=== PATIENT | male | born 1960 | race Caucasian/White ===

== ENCOUNTER 2018-11-06 14:23 | Inpatient (IN) | payer MEDICARE, OTHER ==
[~2018-11-06] VITALS: Ht 190.5 cm; Wt 104.3 kg
--- NOTE | 2018-11-06 14:56 | PHYS DOC ---
Adult General Chief Complaint Chief Complaint: CHEST PAIN HPI HPI Patient is a 58 year old male presents to the ED complaining of episodes of chest pain 4 days ago. Patient states he started to have intermittent chest pain to left chest starting last . Patient states the pain will wake him up out of his sleep. Complains of pain to left side of his chest. Describes the pain as sharp. Rates the pain as 10 out of 10 when it occurs. Patient states he's had more than 10 episodes each day. Pain is not worse or better with exertion. Patient has a family history of cardiac issues but states he has never been diagnosed with anything himself. States his dad of a massive heart attack. Denies shortness of breath, nausea/vomiting, dizziness, weakness, neck pain, fever, jaw pain, (OMID MILAN) Review of Systems Review of Systems Constitutional: Denies fever or chills [] Eyes: Denies change in visual acuity, redness, or eye pain [] HENT: Denies nasal congestion or sore throat [] Respiratory: Denies cough or shortness of breath [] Cardiovascular: No additional information not addressed in HPI [] GI: Denies abdominal pain, nausea, vomiting, bloody stools or diarrhea [] : Denies dysuria or hematuria [] Musculoskeletal: Denies back pain or joint pain [] Integument: Denies rash or skin lesions [] Neurologic: Denies headache, focal weakness or sensory changes [] All other systems were reviewed and found to be within normal limits, except as documented in this note. (OMID MILAN) Allergies Allergies Allergies Coded Allergies Type Severity Reaction Last Updated Verified No Known Drug Allergies 11/06/18 No (LIBERTAD CANTRELL MD) Physical Exam Physical Exam Constitutional: Well developed, well nourished, no acute distress, non-toxic appearance. [] HENT: Normocephalic, atraumatic Eyes: PERRLA, EOMI, conjunctiva normal, no discharge. [] Neck: Normal range of motion, no tenderness, supple, no stridor. [] Cardiovascular:Heart rate regular rhythm, no murmur [] Lungs & Thorax: Bilateral breath sounds clear to auscultation [] Abdomen: Bowel sounds normal, soft, no tenderness, no masses, no pulsatile masses. [] Skin: Warm, dry, no erythema, no rash. [] Back: No tenderness, no CVA tenderness. [] Extremities: No tenderness, no cyanosis, no clubbing, ROM intact, no edema. [] Neurologic: Alert and oriented X 3, normal motor function, normal sensory function, no focal deficits noted. [] Psychologic: Affect normal, judgement normal, mood normal. [] (OMID MILAN) Current Patient Data Vital Signs Vital Signs Date Time Temp Pulse Resp B/P (MAP) Pulse Ox O2 Delivery O2 Flow Rate FiO2 11/06/18 14:46 98.1 78 16 130/81 (97) 98 Room Air 98.1 (LIBERTAD CANTRELL MD) Lab Values Laboratory Tests Test 11/06/18 14:52 White Blood Count 7.8 x10^3/uL (4.0-11.0) Red Blood Count 4.72 x10^6/uL (4.30-5.70) Hemoglobin 13.6 g/dL (13.0-17.5) Hematocrit 40.8 % (39.0-53.0) Mean Corpuscular Volume 86 fL (79-100) Mean Corpuscular Hemoglobin 29 pg (25-35) Mean Corpuscular Hemoglobin Concent 34 g/dL (31-37) Red Cell Distribution Width 13.6 % (11.5-14.5) Platelet Count 209 x10^3/uL (140-400) Neutrophils (%) (Auto) 58 % (31-73) Lymphocytes (%) (Auto) 20 % (24-48) L Monocytes (%) (Auto) 8 % (0-9) Eosinophils (%) (Auto) 13 % (0-3) H Basophils (%) (Auto) 1 % (0-3) Neutrophils # (Auto) 4.5 x10^3uL (1.8-7.7) Lymphocytes # (Auto) 1.5 x10^3/uL (1.0-4.8) Monocytes # (Auto) 0.7 x10^3/uL (0.0-1.1) Eosinophils # (Auto) 1.0 x10^3/uL (0.0-0.7) H Basophils # (Auto) 0.1 x10^3/uL (0.0-0.2) D-Dimer (Marilyn) < 0.27 ug/mlFEU Sodium Level 140 mmol/L (136-145) Potassium Level 3.6 mmol/L (3.5-5.1) Chloride Level 103 mmol/L (98-107) Carbon Dioxide Level 28 mmol/L (21-32) Anion Gap 9 (6-14) Blood Urea Nitrogen 20 mg/dL (8-26) Creatinine 0.8 mg/dL (0.7-1.3) Estimated GFR (Cockcroft-Gault) 100.0 BUN/Creatinine Ratio 25 (6-20) H Glucose Level 119 mg/dL (70-99) H Calcium Level 8.5 mg/dL (8.5-10.1) Total Bilirubin 0.7 mg/dL (0.2-1.0) Aspartate Amino Transferase (AST) 31 U/L (15-37) Alanine Aminotransferase (ALT) 66 U/L (16-63) H Alkaline Phosphatase 89 U/L (46-116) Troponin I Quantitative < 0.017 ng/mL (0.000-0.055) Total Protein 6.9 g/dL (6.4-8.2) Albumin 3.5 g/dL (3.4-5.0) Albumin/Globulin Ratio 1.0 (1.0-1.7) Lipase 79 U/L (73-393) Laboratory Tests 11/06/18 14:52 Laboratory Tests 11/06/18 14:52 (LIBERTAD CANTRELL MD) Lab Values Laboratory Tests Test 11/06/18 14:52 White Blood Count 7.8 x10^3/uL (4.0-11.0) Red Blood Count 4.72 x10^6/uL (4.30-5.70) Hemoglobin 13.6 g/dL (13.0-17.5) Hematocrit 40.8 % (39.0-53.0) Mean Corpuscular Volume 86 fL (79-100) Mean Corpuscular Hemoglobin 29 pg (25-35) Mean Corpuscular Hemoglobin Concent 34 g/dL (31-37) Red Cell Distribution Width 13.6 % (11.5-14.5) Platelet Count 209 x10^3/uL (140-400) Neutrophils (%) (Auto) 58 % (31-73) Lymphocytes (%) (Auto) 20 % (24-48) L Monocytes (%) (Auto) 8 % (0-9) Eosinophils (%) (Auto) 13 % (0-3) H Basophils (%) (Auto) 1 % (0-3) Neutrophils # (Auto) 4.5 x10^3uL (1.8-7.7) Lymphocytes # (Auto) 1.5 x10^3/uL (1.0-4.8) Monocytes # (Auto) 0.7 x10^3/uL (0.0-1.1) Eosinophils # (Auto) 1.0 x10^3/uL (0.0-0.7) H Basophils # (Auto) 0.1 x10^3/uL (0.0-0.2) D-Dimer (Marilyn) < 0.27 ug/mlFEU Sodium Level 140 mmol/L (136-145) Potassium Level 3.6 mmol/L (3.5-5.1) Chloride Level 103 mmol/L (98-107) Carbon Dioxide Level 28 mmol/L (21-32) Anion Gap 9 (6-14) Blood Urea Nitrogen 20 mg/dL (8-26) Creatinine 0.8 mg/dL (0.7-1.3) Estimated GFR (Cockcroft-Gault) 100.0 BUN/Creatinine Ratio 25 (6-20) H Glucose Level 119 mg/dL (70-99) H Calcium Level 8.5 mg/dL (8.5-10.1) Total Bilirubin 0.7 mg/dL (0.2-1.0) Aspartate Amino Transferase (AST) 31 U/L (15-37) Alanine Aminotransferase (ALT) 66 U/L (16-63) H Alkaline Phosphatase 89 U/L (46-116) Troponin I Quantitative < 0.017 ng/mL (0.000-0.055) Total Protein 6.9 g/dL (6.4-8.2) Albumin 3.5 g/dL (3.4-5.0) Albumin/Globulin Ratio 1.0 (1.0-1.7) Lipase 79 U/L (73-393) Laboratory Tests 11/06/18 14:52 Laboratory Tests 11/06/18 14:52 (OMID MILAN) EKG EKG EKG shows Sinus rhythm with PVC's at 72 bpm. No STEMI. (OMID MILAN) Radiology/Procedures Radiology/Procedures [] (OMID MILAN) Course & Med Decision Making Course & Med Decision Making Pertinent Labs and Imaging studies reviewed. (See chart for details) Negative 1st troponin and negative dimer. Patient resting comfortably at this time. []Discussed lab and imaging findings with hospitalist, Dr. Matthews. Agrees to admission and further management patient. Patient stable for admission. Request cardiology consult. Discussed case with Dr. Tompkins. States he will consult and see patient. No further orders at this time. (OMID MILAN) Course & Med Decision Making I was not involved in the care of this patient after 1600.Dr Cantrell (LIBERTAD CANTRELL MD) Dragon Disclaimer Dragon Disclaimer This electronic medical record was generated, in whole or in part, using a voice recognition dictation system. (OMID MILAN) Departure Departure Impression: Primary Impression: Chest pain Disposition: ADMITTED INPATIENT Admitting Physician: Santi Cannon (OMID MILAN) Condition: STABLE OMID MILAN Nov 06, 2018 14:56 LIBERTAD CANTRELL MD Nov 10, 2018 06:45
[2018-11-06 14:59] LABS: BASO # 0.1 x10^3/uL (0.0-0.2); BASO % 1 % (0-3); EOS % 13 % (0-3); HEMATOCRIT 40.8 % (39.0-53.0); HEMOGLOBIN 13.6 g/dL (13.0-17.5); LYMPH # 1.5 x10^3/uL (1.0-4.8); LYMPH % 20 % (24-48); MEAN CORPUSCULAR HEMOGLOBIN 29 pg (25-35); MEAN CORPUSCULAR HGB CONC 34 g/dL (31-37); MEAN CORPUSCULAR VOLUME 86 fL (79-100); MONO # 0.7 x10^3/uL (0.0-1.1); MONO % 8 % (0-9); NEUT # 4.5 x10^3uL (1.8-7.7); NEUT % 58 % (31-73); PLATELET COUNT 209 x10^3/uL (140-400); RED BLOOD COUNT 4.72 x10^6/uL (4.30-5.70); RED CELL DISTRIBUTION WIDTH 13.6 % (11.5-14.5); WHITE BLOOD COUNT 7.8 x10^3/uL (4.0-11.0)
[2018-11-06 15:07] LABS: CALCIUM 8.5 mg/dL (8.5-10.1); CREATININE 0.8 mg/dL (0.7-1.3); POTASSIUM 3.6 mmol/L (3.5-5.1)
[2018-11-06 15:12] LABS: ALBUMIN 3.5 g/dL (3.4-5.0); TOTAL BILIRUBIN 0.7 mg/dL (0.2-1.0); TOTAL PROTEIN 6.9 g/dL (6.4-8.2)
--- NOTE | 2018-11-06 15:18 | EKG ---
[facility] [address] [place] [address] Test Date: 2018-11-06 Test Time: 14:36:41 Pat Name: RUBIO CRANDALL Department: Room: Gender: M [employer]: : [id number] Requested By: OMID MILAN Order Number: [id number] Reading MD: Maik Smith Measurements Intervals Dwight Rate: 72 P: 133 MT: 152 QRS: 154 QRSD: 76 T: 155 QT: 402 QTc: 442 Interpretive Statements SINUS RHYTHM VENTRICULAR PREMATURE COMPLEX(ES) ABNORMAL RIGHT AXIS DEVIATION QRS(T) CONTOUR ABNORMALITY CONSISTENT WITH HIGH LATERAL INFARCT AGE UNDETERMINED Electronically Signed On 11-12-2018 13:06:53 CDT by Maik Smith
--- NOTE | 2018-11-06 15:28 | RAD ---
EXAM: Chest, single view. HISTORY: Chest pain. COMPARISON: None. FINDINGS: A frontal view of the chest is obtained. There is no infiltrate, pleural effusion or pneumothorax. The heart is normal in size. IMPRESSION: No acute pulmonary finding. Electronically signed by: Elmira Segal MD (11/06/2018 3:25 PM) [place] [id number]
[2018-11-06 16:14] LABS: BILIRUBIN,URINE NEGATIVE (NEG); CLARITY,URINE CLOUDY; COLOR,URINE YELLOW; NITRITE,URINE NEGATIVE (NEG); PROTEIN,URINE NEGATIVE (NEG-TRACE); UROBILINOGEN,URINE 0.2 mg/dL (0.2 mg/dL)
[2018-11-06 16:27] LABS: BACTERIA,URINE 0 /HPF (0-FEW); RBC,URINE 0 /HPF (0-2); WBC,URINE OCC /HPF (0-4)
[2018-11-06 16:28] LABS: SQUAMOUS EPITHELIAL CELL,UR OCC /LPF
[2018-11-06] MEDS ORDERED: fentaNYL PF VIAL 100 MCG/2 ML VIAL IV PRN (16:45)
[2018-11-06] MEDS ORDERED: ONDANSETRON PF 4 MG/2 ML VIAL. IV PRN (16:45)
--- NOTE | 2018-11-06 16:57 | PDOC1 ---
History and Physical Date of Admission Date of Admission DATE: 11/06/18 TIME: 16:57 Identification/Chief Complaint Chief Complaint SEEN IN ER ,presents to the ED complaining of episodes of chest pain 4 days ago. Patient states he started to have intermittent chest pain to left chest starting last . Patient states the pain will wake him up out of his sleep. Complains of pain to left side of his chest. Describes the pain as sharp. Rates the pain as 10 out of 10 when it occurs. Patient states he's had more than 10 episodes each day. Pain is not worse or better with exertion. Patient has a family history of cardiac issues but states he has never been diagnosed with anything himself. his dad of a massive heart attack. Denies shortness of breath, nausea/vomiting, dizziness, weakness, neck pain, fever, jaw pain, Past Medical History Cardiovascular: HTN, Hyperlipidemia Musculoskeletal: Osteoarthritis Family History Family History: Heart Disease, High Cholestrol Social History Smoke: Quit ALCOHOL: none Drugs: None Current Medications Current Medications Current Medications Ondansetron HCl (Zofran) 4 mg PRN Q8HRS PRN IV NAUSEA/VOMITING; Start 11/06/18 at 16:45; Stop 11/07/18 at 16:44 Fentanyl Citrate (Fentanyl 2ml Vial) 50 mcg PRN Q1HR PRN IV PAIN; Start at 16:45; Stop 11/07/18 at 16:44 Allergies Allergies: Coded Allergies: No Known Drug Allergies (Unverified , 11/06/18) ROS Review of System Review of Systems Review of Systems Constitutional: Denies fever or chills [] Eyes: Denies change in visual acuity, redness, or eye pain [] HENT: Denies nasal congestion or sore throat [] Respiratory: Denies cough or shortness of breath [] Cardiovascular: No additional information not addressed in HPI [] GI: Denies abdominal pain, nausea, vomiting, bloody stools or diarrhea [] : Denies dysuria or hematuria [] Musculoskeletal: Denies back pain or joint pain [] Integument: Denies rash or skin lesions [] Neurologic: Denies headache, focal weakness or sensory changes [] 14 PT systems were reviewed and found to be within normal limits, except as documented . Physical Exam Physical Exam Physical Exam Physical Exam Constitutional: Well developed, well nourished, no acute distress, non-toxic appearance. [] HENT: Normocephalic, atraumatic Eyes: PERRLA, EOMI, conjunctiva normal, no discharge. [] Neck: Normal range of motion, no tenderness, supple, no stridor. [] Cardiovascular:Heart rate regular rhythm, no murmur [] Lungs & Thorax: Bilateral breath sounds clear to auscultation [] Abdomen: Bowel sounds normal, soft, no tenderness, no masses, no pulsatile masses. [] Skin: Warm, dry, no erythema, no rash. [] Back: No tenderness, no CVA tenderness. [] Extremities: No tenderness, no cyanosis, no clubbing, ROM intact, no edema. [] Neurologic: Alert and oriented X 3, normal motor function, normal sensory function, no focal deficits noted. [] Psychologic: Affect normal, judgement normal, mood normal. [] General: Alert, Oriented X3, Cooperative, mild distress HEENT: Atraumatic, PERRLA, EOMI, Mucous membr. moist/pink Lungs: Clear to auscultation, Normal air movement Heart: S1S2, RRR, no rubs, no gallops Breasts: Not examined Abdomen: Normal bowel sounds, Soft Extremities: No clubbing, No cyanosis, No edema Skin: No breakdown, No significant lesion Neuro: Normal speech, Cranial nerves 3-12 NL Psych/Mental Status: Mental status NL, Mood NL Vitals Vitals Vital Signs Date Time Temp Pulse Resp B/P (MAP) Pulse Ox O2 Delivery O2 Flow Rate FiO2 11/06/18 14:46 98.1 78 16 130/81 (97) 98 Room Air 98.1 Labs Labs Laboratory Tests Test 11/06/18 14:52 11/06/18 16:08 White Blood Count 7.8 x10^3/uL (4.0-11.0) Red Blood Count 4.72 x10^6/uL (4.30-5.70) Hemoglobin 13.6 g/dL (13.0-17.5) Hematocrit 40.8 % (39.0-53.0) Mean Corpuscular Volume 86 fL (79-100) Mean Corpuscular Hemoglobin 29 pg (25-35) Mean Corpuscular Hemoglobin Concent 34 g/dL (31-37) Red Cell Distribution Width 13.6 % (11.5-14.5) Platelet Count 209 x10^3/uL (140-400) Neutrophils (%) (Auto) 58 % (31-73) Lymphocytes (%) (Auto) 20 % (24-48) Monocytes (%) (Auto) 8 % (0-9) Eosinophils (%) (Auto) 13 % (0-3) Basophils (%) (Auto) 1 % (0-3) Neutrophils # (Auto) 4.5 x10^3uL (1.8-7.7) Lymphocytes # (Auto) 1.5 x10^3/uL (1.0-4.8) Monocytes # (Auto) 0.7 x10^3/uL (0.0-1.1) Eosinophils # (Auto) 1.0 x10^3/uL (0.0-0.7) Basophils # (Auto) 0.1 x10^3/uL (0.0-0.2) D-Dimer (Marilyn) < 0.27 ug/mlFEU Sodium Level 140 mmol/L (136-145) Potassium Level 3.6 mmol/L (3.5-5.1) Chloride Level 103 mmol/L (98-107) Carbon Dioxide Level 28 mmol/L (21-32) Anion Gap 9 (6-14) Blood Urea Nitrogen 20 mg/dL (8-26) Creatinine 0.8 mg/dL (0.7-1.3) Estimated GFR (Cockcroft-Gault) 100.0 BUN/Creatinine Ratio 25 (6-20) Glucose Level 119 mg/dL (70-99) Calcium Level 8.5 mg/dL (8.5-10.1) Total Bilirubin 0.7 mg/dL (0.2-1.0) Aspartate Amino Transf (AST/SGOT) 31 U/L (15-37) Alanine Aminotransferase (ALT/SGPT) 66 U/L (16-63) Alkaline Phosphatase 89 U/L (46-116) Troponin I Quantitative < 0.017 ng/mL (0.000-0.055) Total Protein 6.9 g/dL (6.4-8.2) Albumin 3.5 g/dL (3.4-5.0) Albumin/Globulin Ratio 1.0 (1.0-1.7) Lipase 79 U/L (73-393) Urine Color Yellow Urine Clarity Cloudy Urine pH 7.0 Urine Specific [place] 1.020 Urine Protein Negative mg/dL (NEG-TRACE) Urine Glucose (UA) Negative mg/dL (NEG) Urine Ketones (Stick) Negative mg/dL (NEG) Urine Blood Negative (NEG) Urine Nitrite Negative (NEG) Urine Bilirubin Negative (NEG) Urine Urobilinogen Dipstick 0.2 mg/dL (0.2 mg/dL) Urine Leukocyte Esterase Negative (NEG) Urine RBC 0 /HPF (0-2) Urine WBC Occ /HPF (0-4) Urine Squamous Epithelial Cells Occ /LPF Urine Bacteria 0 /HPF (0-FEW) Urine Mucus Slight /LPF Laboratory Tests Test 11/06/18 14:52 11/06/18 16:08 White Blood Count 7.8 x10^3/uL (4.0-11.0) Red Blood Count 4.72 x10^6/uL (4.30-5.70) Hemoglobin 13.6 g/dL (13.0-17.5) Hematocrit 40.8 % (39.0-53.0) Mean Corpuscular Volume 86 fL (79-100) Mean Corpuscular Hemoglobin 29 pg (25-35) Mean Corpuscular Hemoglobin Concent 34 g/dL (31-37) Red Cell Distribution Width 13.6 % (11.5-14.5) Platelet Count 209 x10^3/uL (140-400) Neutrophils (%) (Auto) 58 % (31-73) Lymphocytes (%) (Auto) 20 % (24-48) Monocytes (%) (Auto) 8 % (0-9) Eosinophils (%) (Auto) 13 % (0-3) Basophils (%) (Auto) 1 % (0-3) Neutrophils # (Auto) 4.5 x10^3uL (1.8-7.7) Lymphocytes # (Auto) 1.5 x10^3/uL (1.0-4.8) Monocytes # (Auto) 0.7 x10^3/uL (0.0-1.1) Eosinophils # (Auto) 1.0 x10^3/uL (0.0-0.7) Basophils # (Auto) 0.1 x10^3/uL (0.0-0.2) D-Dimer (Marilyn) < 0.27 ug/mlFEU Sodium Level 140 mmol/L (136-145) Potassium Level 3.6 mmol/L (3.5-5.1) Chloride Level 103 mmol/L (98-107) Carbon Dioxide Level 28 mmol/L (21-32) Anion Gap 9 (6-14) Blood Urea Nitrogen 20 mg/dL (8-26) Creatinine 0.8 mg/dL (0.7-1.3) Estimated GFR (Cockcroft-Gault) 100.0 BUN/Creatinine Ratio 25 (6-20) Glucose Level 119 mg/dL (70-99) Calcium Level 8.5 mg/dL (8.5-10.1) Total Bilirubin 0.7 mg/dL (0.2-1.0) Aspartate Amino Transf (AST/SGOT) 31 U/L (15-37) Alanine Aminotransferase (ALT/SGPT) 66 U/L (16-63) Alkaline Phosphatase 89 U/L (46-116) Troponin I Quantitative < 0.017 ng/mL (0.000-0.055) Total Protein 6.9 g/dL (6.4-8.2) Albumin 3.5 g/dL (3.4-5.0) Albumin/Globulin Ratio 1.0 (1.0-1.7) Lipase 79 U/L (73-393) Urine Color Yellow Urine Clarity Cloudy Urine pH 7.0 Urine Specific [place] 1.020 Urine Protein Negative mg/dL (NEG-TRACE) Urine Glucose (UA) Negative mg/dL (NEG) Urine Ketones (Stick) Negative mg/dL (NEG) Urine Blood Negative (NEG) Urine Nitrite Negative (NEG) Urine Bilirubin Negative (NEG) Urine Urobilinogen Dipstick 0.2 mg/dL (0.2 mg/dL) Urine Leukocyte Esterase Negative (NEG) Urine RBC 0 /HPF (0-2) Urine WBC Occ /HPF (0-4) Urine Squamous Epithelial Cells Occ /LPF Urine Bacteria 0 /HPF (0-FEW) Urine Mucus Slight /LPF Images Images EXAM: Chest, single view. HISTORY: Chest pain. COMPARISON: None. FINDINGS: A frontal view of the chest is obtained. There is no infiltrate, pleural effusion or pneumothorax. The heart is normal in size. IMPRESSION: No acute pulmonary finding. Electronically signed by: lEmira Segal MD (11/06/2018 3:25 PM) [facility] VTE Prophylaxis Ordered VTE Prophylaxis Devices: Yes VTE Pharmacological Prophylaxi: Yes Assessment/Plan Assessment/Plan Impression: Chest pain HYPERLIPIDEMIA POS FHX ASHD PRE-DIABETIC, METABOLIC syndrome HYPERTENSION PLAN TELE SERIAL TROPONIN I STRESS TEST echo cardiology consult DVT PROPHYLAXIS FLP mod risk factors for ASHD/ CAD ADMITTED KAREN URIBE MD Nov 06, 2018 16:57
[2018-11-06 19:00] VITALS: BP 103/62
--- NOTE | 2018-11-06 19:00 | NUR ---
Pt was admitted to the unit from ER with c/o chest pain for the past 5 days. Pt states that the pain progressively gets worse at night while his sleeping until it wakes him up. Pt currently has no c/o pain, SR with PVC's on telemetry, RA, up adlib and tolerating well. H&P, med rec completed, spoke with admitting physician, Dr. Matthews, home meds restarted and orders received. Bed in low/locked position, call light within reach, VSS, will continue to monitor for status changes.
[2018-11-06] MEDS ORDERED: BACL20TA PO (20:24)
[2018-11-06] MEDS ORDERED: BUSP10TA PO (20:24)
[2018-11-06] MEDS ORDERED: PROP20TA PO (20:24)
[2018-11-06] MEDS ORDERED: ATOR40TA59 PO (20:24)
[2018-11-06] MEDS ORDERED: METF500T16 PO (20:24)
[2018-11-06] MEDS ORDERED: QUET50TA5 PO (20:24)
[2018-11-06] MEDS ORDERED: IPRA30SP NS (20:24)
[2018-11-06] MEDS ORDERED: LISI10TA2 PO (20:24)
[2018-11-06] MEDS ORDERED: TRAZ-118 PO (20:24)
[2018-11-06] MEDS ORDERED: FLUO40CA9 PO (20:24)
[2018-11-06] MEDS ORDERED: CHOL100014 PO (20:24)
[2018-11-06] MEDS ORDERED: ASPI-630 PO (20:24)
[2018-11-06] MEDS ORDERED: HYDR50CA2 PO (20:24)
[2018-11-06] MEDS ORDERED: hydrOXYzine PAMOATE 25 MG CAPSULE PO PRN (20:45)
[2018-11-06] MEDS ORDERED: DEXTROSE 50% 25 GM / 50ML DISP.SYRIN. IV PRN (20:45)
[2018-11-06] MEDS ORDERED: LISINOPRIL 10 MG TABLET PO PRN (20:45)
[2018-11-06] MEDS ORDERED: traZODone 50 MG TABLET. PO PRN (20:45)
[2018-11-06] MEDS: INSULIN LISPRO 300 UNITS/3 ML INSULN.PEN. SQ SCH (21:00)
[2018-11-06] MEDS ORDERED: ATORVASTATIN CALCIUM 40 MG TABLET. PO SCH (21:00)
[2018-11-06] MEDS ORDERED: BACLOFEN 10 MG TABLET. PO PRN (21:00)
[2018-11-06] MEDS: IPRATROPIUM BROMIDE 0.06% NASAL SPRAY 15ML BOTTLE. NS SCH (21:00)
[2018-11-06] MEDS: PROPRANOLOL 10 MG TABLET. PO SCH (21:18)
[2018-11-06] MEDS: QUEtiapine 25 MG TABLET. PO SCH (21:18)
[2018-11-06] MEDS: busPIRone 10 MG TABLET. PO SCH (21:18)
[2018-11-06] MEDS ORDERED: ENOXAPARIN 40 MG/0.4 ML SYRINGE. SQ SCH (22:00)
[2018-11-06 23:15] VITALS: BP 96/55
[2018-11-06 23:30] VITALS: BP 173/84
[2018-11-07 03:44] VITALS: BP 104/50
[2018-11-07 04:45] LABS: BASO % 1 % (0-3); EOS # 1.1 x10^3/uL (0.0-0.7); EOS % 13 % (0-3); HEMATOCRIT 41.4 % (39.0-53.0); HEMOGLOBIN 13.6 g/dL (13.0-17.5); LYMPH % 25 % (24-48); MEAN CORPUSCULAR HEMOGLOBIN 29 pg (25-35); MEAN CORPUSCULAR HGB CONC 33 g/dL (31-37); MEAN CORPUSCULAR VOLUME 87 fL (79-100); MONO # 0.7 x10^3/uL (0.0-1.1); MONO % 8 % (0-9); NEUT # 4.2 x10^3uL (1.8-7.7); NEUT % 53 % (31-73); PLATELET COUNT 204 x10^3/uL (140-400); RED BLOOD COUNT 4.74 x10^6/uL (4.30-5.70); RED CELL DISTRIBUTION WIDTH 13.4 % (11.5-14.5); WHITE BLOOD COUNT 7.9 x10^3/uL (4.0-11.0)
[2018-11-07 06:39] LABS: ALBUMIN 3.4 g/dL (3.4-5.0); ALBUMIN/GLOBULIN RATIO 1.1 (1.0-1.7); CALCIUM 8.4 mg/dL (8.5-10.1); CREATININE 0.8 mg/dL (0.7-1.3); POTASSIUM 3.4 mmol/L (3.5-5.1); TOTAL BILIRUBIN 0.5 mg/dL (0.2-1.0); TOTAL PROTEIN 6.6 g/dL (6.4-8.2)
[2018-11-07 06:40] LABS: CHOLESTEROL/HDL RATIO 2.7
[2018-11-07 07:00] VITALS: BP 122/60
[2018-11-07] MEDS: INSULIN LISPRO 300 UNITS/3 ML INSULN.PEN. SQ SCH ×3 (08:00→17:00)
[2018-11-07] MEDS ORDERED: FLUoxetine HCL 20 MG CAPSULE PO SCH (09:00)
[2018-11-07] MEDS: IPRATROPIUM BROMIDE 0.06% NASAL SPRAY 15ML BOTTLE. NS SCH (09:00)
[2018-11-07] MEDS ORDERED: CHOLECALCIFEROL (VITAMIN D3) 1,000 UNIT TABLET PO SCH (09:00)
[2018-11-07] MEDS ORDERED: ASPIRIN CHEWABLE 81 MG TABLET. PO SCH (09:00)
--- NOTE | 2018-11-07 09:36 | CARD ---
MR#: [id number] Date of Study: 11/07/2018 Ordering Physician: KAREN URIBE, Referring Physician: KAREN URIBE Tech: Alice Tineo [facility] APPROVED REPORT EXAM: Two-dimensional and M-mode echocardiogram with Doppler and color Doppler. Other Information Quality : AverageHR: 65bpm Rhythm : PVC's INDICATION Chest Pain 2D DIMENSIONS RVDd3.7 (2.9-3.5cm)Left Atrium(2D)3.6 (1.6-4.0cm) IVSd1.0 (0.7-1.1cm)Aortic Root(2D)3.4 (2.0-3.7cm) LVDd4.6 (3.9-5.9cm)LVOT Diameter2.2 (1.8-2.4cm) PWd0.8 (0.7-1.1cm)LVDs3.2 (2.5-4.0cm) FS (%) 29.4 %SV55.0 ml LVEF(%)56.4 (>50%) Aortic Valve AoV Peak Turner.102.5cm/sAoV VTI24.1cm AO Peak GR.4.2mmHgLVOT Peak Turner.82.6cm/s AO Mean GR.2mmHgAVA (VMAX)2.96cm2 REG (VTI)3.00cm2 Mitral Valve MV E Thbiospi88.2cm/sMV DECEL [id number] MV A Ojjkaqvt17.1cm/sE/A Ratio1.1 MV A Dggbmfzd42mt Pulmonary Valve PV Peak Viifqsco195.6cm/s Tricuspid Valve TR P. Sljrejbw692sq/sRAP [id number] TR Peak Gr.45ovOxAHZO24hoQt LEFT VENTRICLE The left ventricle is normal size. There is normal left ventricular wall thickness. The left ventricu lar systolic function is normal and the ejection fraction is within normal range. The Ejection Fracti on is 55-60%. There is normal LV segmental wall motion. Transmitral Doppler flow pattern is Grade II- pseudonormal filling dynamics. RIGHT VENTRICLE The right ventricle is normal size. There is normal right ventricular wall thickness. The right ventr icular systolic function is normal. ATRIA The left atrium size is normal. The right atrium size is normal. The interatrial septum is intact wit h no evidence for an atrial septal defect or patent foramen ovale as noted on 2-D or Doppler imaging. AORTIC VALVE The aortic valve is normal in structure and function. The aortic valve is trileaflet. Doppler and Col or Flow revealed no significant aortic regurgitation. There is no significant aortic valvular stenosi s. There is no aortic valvular vegetation. MITRAL VALVE The mitral valve is normal in structure and function. There is no evidence of mitral valve prolapse. There is no mitral valve stenosis. Doppler and Color-flow revealed trace mitral regurgitation. TRICUSPID VALVE The tricuspid valve is normal in structure and function. Doppler and Color Flow revealed trace tricus pid regurgitation. The PA pressure was estimated at 30 mmHg. There is no tricuspid valve prolapse or vegetation. There is no tricuspid valve stenosis. PULMONIC VALVE The pulmonary valve is normal in structure and function. Doppler and Color Flow revealed no pulmonic valvular regurgitation. There is no pulmonic valvular stenosis. GREAT VESSELS The aortic root is normal in size. The ascending aorta is normal in size. The IVC is normal in size a nd collapses >50% with inspiration. PERICARDIAL EFFUSION There is no evidence of significant pericardial effusion. Critical Notification Critical Value: No <Conclusion> The left ventricular systolic function is normal and the ejection fraction is within normal range. Th e Ejection Fraction is 55-60%. There is normal LV segmental wall motion. Signed by : Peterson Tompkins, Electronically Approved : 11/07/2018 09:35:34
[2018-11-07 10:03] LABS: % BANDS 2 % (0-9); % BASOS 2 % (0-3); % EOS 19 % (0-5); % LYMPHS 18 % (24-48); % MONOS 2 % (0-10); % SEGS 57 % (35-66); PLT ESTIMATE ADEQUATE (ADEQUATE)
[2018-11-07] MEDS: busPIRone 10 MG TABLET. PO SCH ×2 (10:30→17:15)
[2018-11-07] MEDS: metFORMIN 500 MG TABLET PO SCH ×2 (10:30→17:15)
[2018-11-07] MEDS: PROPRANOLOL 10 MG TABLET. PO SCH ×2 (10:31→14:00)
[2018-11-07] MEDS: QUEtiapine 25 MG TABLET. PO SCH ×2 (10:32→17:16)
[2018-11-07 11:12] VITALS: BP 117/59
--- NOTE | 2018-11-07 11:40 | PDOC2 ---
GUSTAVO SUGGS GAS SYSTEM OPERATOR 11/07/18 1140: CARDIAC CONSULT DATE OF CONSULT Date of Consult DATE: 11/07/18 TIME: 11:33 REASON FOR CONSULT Reason for Consult: Chest pain REFERRING PHYSICIAN Referring Physician: Rubin SOURCE Source: Chart review, Patient HISTORY OF PRESENT ILLNESS HISTORY OF PRESENT ILLNESS This is a pleasant 58 yo male admitted for complains of chest pain. Reports that it has been happening intermittently since . Reports as sharp stabbing most of the time to his mid chest that goes to left and at times felt like his chest is sinking. No nausea or neck pain or radiating arm discomfort. Denies any CHARLES or exertional CP. He does have occasional palpitations but no dizziness. No prior hx of arrhythmias nor CAD. No recent falls or any recent injuries. PAST MEDICAL HISTORY Cardiovascular: HTN, Hyperlipidemia CENTRAL NERVOUS SYSTEM: Periperal neuropathy GI: No pertinent hx Heme/Onc: No pertinent hx Hepatobiliary: No pertinent hx Psych: Anxiety Musculoskeletal: Osteoarthritis Rheumatologic: No pertinent hx Infectious disease: No pertinent hx ENT: No pertinent hx Renal/: No pertinent hx Endocrine: Diabetes (2) PAST SURGICAL HISTORY Past Surgical History: Hernia Repair FAMILY HISTORY Family History: Heart Disease SOCIAL HISTORY Smoke: Quit ALCOHOL: none Drugs: None Lives: Alone CURRENT MEDICATIONS CURRENT MEDICATIONS Current Medications Medications (Trade) Dose Ordered Sig/Chuck Route PRN Reason Start Time Stop Time Status Last Admin Dose Admin Aspirin (Children'S Aspirin) 81 mg DAILY PO 11/07/18 09:00 11/07/18 10:31 Atorvastatin Calcium (Lipitor) 40 mg HS PO 11/06/18 21:00 11/06/18 21:18 Buspirone HCl (Buspar) 10 mg TID PO 11/06/18 21:00 11/07/18 10:30 Vitamin D (Vitamin D3) 1,000 unit DAILY PO 11/07/18 09:00 11/07/18 10:31 Fluoxetine HCl (PROzac) 60 mg DAILY PO 11/07/18 09:00 11/07/18 10:32 Metformin HCl (Glucophage) 500 mg BIDWMEALS PO 11/07/18 08:00 11/07/18 10:30 Propranolol HCl (Inderal) 20 mg TID PO 11/06/18 21:00 11/07/18 10:31 Quetiapine Fumarate (SEROquel) 50 mg TID PO 11/06/18 21:00 11/07/18 10:32 Enoxaparin Sodium (Lovenox 40mg Syringe) 40 mg Q24H SQ 11/06/18 22:00 11/06/18 22:35 ALLERGIES ALLERGIES: Coded Allergies: No Known Drug Allergies (Unverified , 11/06/18) ROS Review of System 14 point ROS evaluated with pertinent positives noted per HPI PHYSICAL EXAM General: Alert, Oriented X3, Cooperative, No acute distress HEENT: Atraumatic, Mucous membr. moist/pink Lungs: Clear to auscultation, Normal air movement Heart: Regular rate (SR), Normal S1, Normal S2, No murmurs Abdomen: Soft, No tenderness Extremities: No cyanosis, No edema Skin: No breakdown, No significant lesion Neuro: Normal speech, Sensation intact Psych/Mental Status: Mental status NL, Mood NL MUSCULOSKELETAL: Osteoarthritic changes both hands VITALS VITALS Vital Signs Date Time Temp Pulse Resp B/P (MAP) Pulse Ox O2 Delivery O2 Flow Rate FiO2 11/07/18 11:12 98.3 73 18 117/59 (78) 99 Room Air 98.3 LABS Lab: Laboratory Tests Test 11/06/18 14:52 11/06/18 16:08 11/06/18 21:16 11/06/18 22:45 White Blood Count 7.8 x10^3/uL (4.0-11.0) Red Blood Count 4.72 x10^6/uL (4.30-5.70) Hemoglobin 13.6 g/dL (13.0-17.5) Hematocrit 40.8 % (39.0-53.0) Mean Corpuscular Volume 86 fL (79-100) Mean Corpuscular Hemoglobin 29 pg (25-35) Mean Corpuscular Hemoglobin Concent 34 g/dL (31-37) Red Cell Distribution Width 13.6 % (11.5-14.5) Platelet Count 209 x10^3/uL (140-400) Neutrophils (%) (Auto) 58 % (31-73) Lymphocytes (%) (Auto) 20 % (24-48) Monocytes (%) (Auto) 8 % (0-9) Eosinophils (%) (Auto) 13 % (0-3) Basophils (%) (Auto) 1 % (0-3) Neutrophils # (Auto) 4.5 x10^3uL (1.8-7.7) Lymphocytes # (Auto) 1.5 x10^3/uL (1.0-4.8) Monocytes # (Auto) 0.7 x10^3/uL (0.0-1.1) Eosinophils # (Auto) 1.0 x10^3/uL (0.0-0.7) Basophils # (Auto) 0.1 x10^3/uL (0.0-0.2) D-Dimer (Marilyn) < 0.27 ug/mlFEU Sodium Level 140 mmol/L (136-145) Potassium Level 3.6 mmol/L (3.5-5.1) Chloride Level 103 mmol/L (98-107) Carbon Dioxide Level 28 mmol/L (21-32) Anion Gap 9 (6-14) Blood Urea Nitrogen 20 mg/dL (8-26) Creatinine 0.8 mg/dL (0.7-1.3) Estimated GFR (Cockcroft-Gault) 100.0 BUN/Creatinine Ratio 25 (6-20) Glucose Level 119 mg/dL (70-99) Calcium Level 8.5 mg/dL (8.5-10.1) Total Bilirubin 0.7 mg/dL (0.2-1.0) Aspartate Amino Transf (AST/SGOT) 31 U/L (15-37) Alanine Aminotransferase (ALT/SGPT) 66 U/L (16-63) Alkaline Phosphatase 89 U/L (46-116) Troponin I Quantitative < 0.017 ng/mL (0.000-0.055) < 0.017 ng/mL (0.000-0.055) Total Protein 6.9 g/dL (6.4-8.2) Albumin 3.5 g/dL (3.4-5.0) Albumin/Globulin Ratio 1.0 (1.0-1.7) Lipase 79 U/L (73-393) Urine Color Yellow Urine Clarity Cloudy Urine pH 7.0 Urine Specific [place] 1.020 Urine Protein Negative mg/dL (NEG-TRACE) Urine Glucose (UA) Negative mg/dL (NEG) Urine Ketones (Stick) Negative mg/dL (NEG) Urine Blood Negative (NEG) Urine Nitrite Negative (NEG) Urine Bilirubin Negative (NEG) Urine Urobilinogen Dipstick 0.2 mg/dL (0.2 mg/dL) Urine Leukocyte Esterase Negative (NEG) Urine RBC 0 /HPF (0-2) Urine WBC Occ /HPF (0-4) Urine Squamous Epithelial Cells Occ /LPF Urine Bacteria 0 /HPF (0-FEW) Urine Mucus Slight /LPF Glucose (Fingerstick) 116 mg/dL (70-99) Test 11/07/18 03:50 11/07/18 07:14 White Blood Count 7.9 x10^3/uL (4.0-11.0) Red Blood Count 4.74 x10^6/uL (4.30-5.70) Hemoglobin 13.6 g/dL (13.0-17.5) Hematocrit 41.4 % (39.0-53.0) Mean Corpuscular Volume 87 fL (79-100) Mean Corpuscular Hemoglobin 29 pg (25-35) Mean Corpuscular Hemoglobin Concent 33 g/dL (31-37) Red Cell Distribution Width 13.4 % (11.5-14.5) Platelet Count 204 x10^3/uL (140-400) Neutrophils (%) (Auto) 53 % (31-73) Lymphocytes (%) (Auto) 25 % (24-48) Monocytes (%) (Auto) 8 % (0-9) Eosinophils (%) (Auto) 13 % (0-3) Basophils (%) (Auto) 1 % (0-3) Neutrophils # (Auto) 4.2 x10^3uL (1.8-7.7) Lymphocytes # (Auto) 2.0 x10^3/uL (1.0-4.8) Monocytes # (Auto) 0.7 x10^3/uL (0.0-1.1) Eosinophils # (Auto) 1.1 x10^3/uL (0.0-0.7) Basophils # (Auto) 0.0 x10^3/uL (0.0-0.2) Segmented Neutrophils % 57 % (35-66) Band Neutrophils % 2 % (0-9) Lymphocytes % 18 % (24-48) Monocytes % 2 % (0-10) Eosinophils % 19 % (0-5) Basophils % 2 % (0-3) Platelet Estimate Adequate (ADEQUATE) Sodium Level 142 mmol/L (136-145) Potassium Level 3.4 mmol/L (3.5-5.1) Chloride Level 103 mmol/L (98-107) Carbon Dioxide Level 29 mmol/L (21-32) Anion Gap 10 (6-14) Blood Urea Nitrogen 16 mg/dL (8-26) Creatinine 0.8 mg/dL (0.7-1.3) Estimated GFR (Cockcroft-Gault) 100.0 BUN/Creatinine Ratio 20 (6-20) Glucose Level 97 mg/dL (70-99) Calcium Level 8.4 mg/dL (8.5-10.1) Total Bilirubin 0.5 mg/dL (0.2-1.0) Aspartate Amino Transf (AST/SGOT) 29 U/L (15-37) Alanine Aminotransferase (ALT/SGPT) 57 U/L (16-63) Alkaline Phosphatase 85 U/L (46-116) Troponin I Quantitative < 0.017 ng/mL (0.000-0.055) Total Protein 6.6 g/dL (6.4-8.2) Albumin 3.4 g/dL (3.4-5.0) Albumin/Globulin Ratio 1.1 (1.0-1.7) Triglycerides Level 124 mg/dL (0-150) Cholesterol Level 85 mg/dL (0-200) LDL Cholesterol, Calculated 28 mg/dL (0-100) VLDL Cholesterol, Calculated 25 mg/dL (0-40) Non-HDL Cholesterol Calculated 53 mg/dL (0-129) HDL Cholesterol 32 mg/dL (40-60) Cholesterol/HDL Ratio 2.7 Glucose (Fingerstick) 98 mg/dL (70-99) ECHOCARDIOGRAM ECHOCARDIOGRAM <Conclusion> The left ventricular systolic function is normal and the ejection fraction is within normal range. The Ejection Fraction is 55-60%. There is normal LV segmental wall motion. DATE: 11/07/18 0926 ASSESSMENT/PLAN ASSESSMENT/PLAN 1. Chest pain; trops nml with EKG SR without acute changes. likely from PVC occurrence 2. HTN; controlled 3. HLP 4. DM2 5. Panic disorder with disability Recommendations 1. ASA. Continue with home BB and ACEi and statin 2. TTE unremarkable for significant changes. EF and WM nml. Outpt event monitor for his palpitations and PVC burden 3. With his risk factors will consider for outpt lexiscan 4. Follow up in office in 4 weeks. WOO VILA MD 11/07/184: CARDIAC CONSULT ASSESSMENT/PLAN ASSESSMENT/PLAN Patient seen and examined. Agree with RECRUITMENT SPECIALIST's assessment and plan. CP with atypical features IA ruled out 2D echo showed normal LV function without WMA Plan for outpatient MPI to rule out ischemia and event monitor to assess arrhythmia burden Thank you for your consultation GUSTAVO SUGGS APRN Nov 07, 2018 11:40 WOO VILA MD Nov 07, 2018 21:38
[2018-11-07] MEDS ORDERED: POTASSIUM CHLORIDE 20 MEQ TABLET.ER. PO ONE (11:45)
[2018-11-07] MEDS ORDERED: MAGNESIUM SULFATE 1GM 100 ML IV ONE (12:00)
--- NOTE | 2018-11-07 12:18 | PDOC3 ---
Discharge Summary Visit Information Date of Admission: Nov 06, 2018 Date of Discharge: Nov 07, 2018 Final Diagnosis Problems Medical Problems: (1) Chest pain Status: Acute Brief Hospital Course Allergies Allergies Coded Allergies Type Severity Reaction Last Updated Verified No Known Drug Allergies 11/06/18 No Vital Signs Vital Signs Date Time Temp Pulse Resp B/P (MAP) Pulse Ox O2 Delivery O2 Flow Rate FiO2 11/07/18 11:12 98.3 73 18 117/59 (78) 99 Room Air 98.3 Lab Results Laboratory Tests Test 11/06/18 14:52 11/06/18 16:08 11/06/18 21:16 11/06/18 22:45 White Blood Count 7.8 x10^3/uL (4.0-11.0) Red Blood Count 4.72 x10^6/uL (4.30-5.70) Hemoglobin 13.6 g/dL (13.0-17.5) Hematocrit 40.8 % (39.0-53.0) Mean Corpuscular Volume 86 fL (79-100) Mean Corpuscular Hemoglobin 29 pg (25-35) Mean Corpuscular Hemoglobin Concent 34 g/dL (31-37) Red Cell Distribution Width 13.6 % (11.5-14.5) Platelet Count 209 x10^3/uL (140-400) Neutrophils (%) (Auto) 58 % (31-73) Lymphocytes (%) (Auto) 20 % (24-48) Monocytes (%) (Auto) 8 % (0-9) Eosinophils (%) (Auto) 13 % (0-3) Basophils (%) (Auto) 1 % (0-3) Neutrophils # (Auto) 4.5 x10^3uL (1.8-7.7) Lymphocytes # (Auto) 1.5 x10^3/uL (1.0-4.8) Monocytes # (Auto) 0.7 x10^3/uL (0.0-1.1) Eosinophils # (Auto) 1.0 x10^3/uL (0.0-0.7) Basophils # (Auto) 0.1 x10^3/uL (0.0-0.2) D-Dimer (Marilyn) < 0.27 ug/mlFEU Sodium Level 140 mmol/L (136-145) Potassium Level 3.6 mmol/L (3.5-5.1) Chloride Level 103 mmol/L (98-107) Carbon Dioxide Level 28 mmol/L (21-32) Anion Gap 9 (6-14) Blood Urea Nitrogen 20 mg/dL (8-26) Creatinine 0.8 mg/dL (0.7-1.3) Estimated GFR (Cockcroft-Gault) 100.0 BUN/Creatinine Ratio 25 (6-20) Glucose Level 119 mg/dL (70-99) Calcium Level 8.5 mg/dL (8.5-10.1) Total Bilirubin 0.7 mg/dL (0.2-1.0) Aspartate Amino Transf (AST/SGOT) 31 U/L (15-37) Alanine Aminotransferase (ALT/SGPT) 66 U/L (16-63) Alkaline Phosphatase 89 U/L (46-116) Troponin I Quantitative < 0.017 ng/mL (0.000-0.055) < 0.017 ng/mL (0.000-0.055) Total Protein 6.9 g/dL (6.4-8.2) Albumin 3.5 g/dL (3.4-5.0) Albumin/Globulin Ratio 1.0 (1.0-1.7) Lipase 79 U/L (73-393) Urine Color Yellow Urine Clarity Cloudy Urine pH 7.0 Urine Specific [place] 1.020 Urine Protein Negative mg/dL (NEG-TRACE) Urine Glucose (UA) Negative mg/dL (NEG) Urine Ketones (Stick) Negative mg/dL (NEG) Urine Blood Negative (NEG) Urine Nitrite Negative (NEG) Urine Bilirubin Negative (NEG) Urine Urobilinogen Dipstick 0.2 mg/dL (0.2 mg/dL) Urine Leukocyte Esterase Negative (NEG) Urine RBC 0 /HPF (0-2) Urine WBC Occ /HPF (0-4) Urine Squamous Epithelial Cells Occ /LPF Urine Bacteria 0 /HPF (0-FEW) Urine Mucus Slight /LPF Glucose (Fingerstick) 116 mg/dL (70-99) Test 11/07/18 03:50 11/07/18 07:14 11/07/18 11:36 White Blood Count 7.9 x10^3/uL (4.0-11.0) Red Blood Count 4.74 x10^6/uL (4.30-5.70) Hemoglobin 13.6 g/dL (13.0-17.5) Hematocrit 41.4 % (39.0-53.0) Mean Corpuscular Volume 87 fL (79-100) Mean Corpuscular Hemoglobin 29 pg (25-35) Mean Corpuscular Hemoglobin Concent 33 g/dL (31-37) Red Cell Distribution Width 13.4 % (11.5-14.5) Platelet Count 204 x10^3/uL (140-400) Neutrophils (%) (Auto) 53 % (31-73) Lymphocytes (%) (Auto) 25 % (24-48) Monocytes (%) (Auto) 8 % (0-9) Eosinophils (%) (Auto) 13 % (0-3) Basophils (%) (Auto) 1 % (0-3) Neutrophils # (Auto) 4.2 x10^3uL (1.8-7.7) Lymphocytes # (Auto) 2.0 x10^3/uL (1.0-4.8) Monocytes # (Auto) 0.7 x10^3/uL (0.0-1.1) Eosinophils # (Auto) 1.1 x10^3/uL (0.0-0.7) Basophils # (Auto) 0.0 x10^3/uL (0.0-0.2) Segmented Neutrophils % 57 % (35-66) Band Neutrophils % 2 % (0-9) Lymphocytes % 18 % (24-48) Monocytes % 2 % (0-10) Eosinophils % 19 % (0-5) Basophils % 2 % (0-3) Platelet Estimate Adequate (ADEQUATE) Sodium Level 142 mmol/L (136-145) Potassium Level 3.4 mmol/L (3.5-5.1) Chloride Level 103 mmol/L (98-107) Carbon Dioxide Level 29 mmol/L (21-32) Anion Gap 10 (6-14) Blood Urea Nitrogen 16 mg/dL (8-26) Creatinine 0.8 mg/dL (0.7-1.3) Estimated GFR (Cockcroft-Gault) 100.0 BUN/Creatinine Ratio 20 (6-20) Glucose Level 97 mg/dL (70-99) Calcium Level 8.4 mg/dL (8.5-10.1) Magnesium Level 1.7 mg/dL (1.8-2.4) Total Bilirubin 0.5 mg/dL (0.2-1.0) Aspartate Amino Transf (AST/SGOT) 29 U/L (15-37) Alanine Aminotransferase (ALT/SGPT) 57 U/L (16-63) Alkaline Phosphatase 85 U/L (46-116) Troponin I Quantitative < 0.017 ng/mL (0.000-0.055) Total Protein 6.6 g/dL (6.4-8.2) Albumin 3.4 g/dL (3.4-5.0) Albumin/Globulin Ratio 1.1 (1.0-1.7) Triglycerides Level 124 mg/dL (0-150) Cholesterol Level 85 mg/dL (0-200) LDL Cholesterol, Calculated 28 mg/dL (0-100) VLDL Cholesterol, Calculated 25 mg/dL (0-40) Non-HDL Cholesterol Calculated 53 mg/dL (0-129) HDL Cholesterol 32 mg/dL (40-60) Cholesterol/HDL Ratio 2.7 Glucose (Fingerstick) 98 mg/dL (70-99) 240 mg/dL (70-99) Laboratory Tests Test 11/06/18 14:52 11/06/18 16:08 11/06/18 21:16 11/06/18 22:45 White Blood Count 7.8 x10^3/uL (4.0-11.0) Red Blood Count 4.72 x10^6/uL (4.30-5.70) Hemoglobin 13.6 g/dL (13.0-17.5) Hematocrit 40.8 % (39.0-53.0) Mean Corpuscular Volume 86 fL (79-100) Mean Corpuscular Hemoglobin 29 pg (25-35) Mean Corpuscular Hemoglobin Concent 34 g/dL (31-37) Red Cell Distribution Width 13.6 % (11.5-14.5) Platelet Count 209 x10^3/uL (140-400) Neutrophils (%) (Auto) 58 % (31-73) Lymphocytes (%) (Auto) 20 % (24-48) Monocytes (%) (Auto) 8 % (0-9) Eosinophils (%) (Auto) 13 % (0-3) Basophils (%) (Auto) 1 % (0-3) Neutrophils # (Auto) 4.5 x10^3uL (1.8-7.7) Lymphocytes # (Auto) 1.5 x10^3/uL (1.0-4.8) Monocytes # (Auto) 0.7 x10^3/uL (0.0-1.1) Eosinophils # (Auto) 1.0 x10^3/uL (0.0-0.7) Basophils # (Auto) 0.1 x10^3/uL (0.0-0.2) D-Dimer (Marilyn) < 0.27 ug/mlFEU Sodium Level 140 mmol/L (136-145) Potassium Level 3.6 mmol/L (3.5-5.1) Chloride Level 103 mmol/L (98-107) Carbon Dioxide Level 28 mmol/L (21-32) Anion Gap 9 (6-14) Blood Urea Nitrogen 20 mg/dL (8-26) Creatinine 0.8 mg/dL (0.7-1.3) Estimated GFR (Cockcroft-Gault) 100.0 BUN/Creatinine Ratio 25 (6-20) Glucose Level 119 mg/dL (70-99) Calcium Level 8.5 mg/dL (8.5-10.1) Total Bilirubin 0.7 mg/dL (0.2-1.0) Aspartate Amino Transf (AST/SGOT) 31 U/L (15-37) Alanine Aminotransferase (ALT/SGPT) 66 U/L (16-63) Alkaline Phosphatase 89 U/L (46-116) Troponin I Quantitative < 0.017 ng/mL (0.000-0.055) < 0.017 ng/mL (0.000-0.055) Total Protein 6.9 g/dL (6.4-8.2) Albumin 3.5 g/dL (3.4-5.0) Albumin/Globulin Ratio 1.0 (1.0-1.7) Lipase 79 U/L (73-393) Urine Color Yellow Urine Clarity Cloudy Urine pH 7.0 Urine Specific [place] 1.020 Urine Protein Negative mg/dL (NEG-TRACE) Urine Glucose (UA) Negative mg/dL (NEG) Urine Ketones (Stick) Negative mg/dL (NEG) Urine Blood Negative (NEG) Urine Nitrite Negative (NEG) Urine Bilirubin Negative (NEG) Urine Urobilinogen Dipstick 0.2 mg/dL (0.2 mg/dL) Urine Leukocyte Esterase Negative (NEG) Urine RBC 0 /HPF (0-2) Urine WBC Occ /HPF (0-4) Urine Squamous Epithelial Cells Occ /LPF Urine Bacteria 0 /HPF (0-FEW) Urine Mucus Slight /LPF Glucose (Fingerstick) 116 mg/dL (70-99) Test 11/07/18 03:50 11/07/18 07:14 11/07/18 11:36 White Blood Count 7.9 x10^3/uL (4.0-11.0) Red Blood Count 4.74 x10^6/uL (4.30-5.70) Hemoglobin 13.6 g/dL (13.0-17.5) Hematocrit 41.4 % (39.0-53.0) Mean Corpuscular Volume 87 fL (79-100) Mean Corpuscular Hemoglobin 29 pg (25-35) Mean Corpuscular Hemoglobin Concent 33 g/dL (31-37) Red Cell Distribution Width 13.4 % (11.5-14.5) Platelet Count 204 x10^3/uL (140-400) Neutrophils (%) (Auto) 53 % (31-73) Lymphocytes (%) (Auto) 25 % (24-48) Monocytes (%) (Auto) 8 % (0-9) Eosinophils (%) (Auto) 13 % (0-3) Basophils (%) (Auto) 1 % (0-3) Neutrophils # (Auto) 4.2 x10^3uL (1.8-7.7) Lymphocytes # (Auto) 2.0 x10^3/uL (1.0-4.8) Monocytes # (Auto) 0.7 x10^3/uL (0.0-1.1) Eosinophils # (Auto) 1.1 x10^3/uL (0.0-0.7) Basophils # (Auto) 0.0 x10^3/uL (0.0-0.2) Segmented Neutrophils % 57 % (35-66) Band Neutrophils % 2 % (0-9) Lymphocytes % 18 % (24-48) Monocytes % 2 % (0-10) Eosinophils % 19 % (0-5) Basophils % 2 % (0-3) Platelet Estimate Adequate (ADEQUATE) Sodium Level 142 mmol/L (136-145) Potassium Level 3.4 mmol/L (3.5-5.1) Chloride Level 103 mmol/L (98-107) Carbon Dioxide Level 29 mmol/L (21-32) Anion Gap 10 (6-14) Blood Urea Nitrogen 16 mg/dL (8-26) Creatinine 0.8 mg/dL (0.7-1.3) Estimated GFR (Cockcroft-Gault) 100.0 BUN/Creatinine Ratio 20 (6-20) Glucose Level 97 mg/dL (70-99) Calcium Level 8.4 mg/dL (8.5-10.1) Magnesium Level 1.7 mg/dL (1.8-2.4) Total Bilirubin 0.5 mg/dL (0.2-1.0) Aspartate Amino Transf (AST/SGOT) 29 U/L (15-37) Alanine Aminotransferase (ALT/SGPT) 57 U/L (16-63) Alkaline Phosphatase 85 U/L (46-116) Troponin I Quantitative < 0.017 ng/mL (0.000-0.055) Total Protein 6.6 g/dL (6.4-8.2) Albumin 3.4 g/dL (3.4-5.0) Albumin/Globulin Ratio 1.1 (1.0-1.7) Triglycerides Level 124 mg/dL (0-150) Cholesterol Level 85 mg/dL (0-200) LDL Cholesterol, Calculated 28 mg/dL (0-100) VLDL Cholesterol, Calculated 25 mg/dL (0-40) Non-HDL Cholesterol Calculated 53 mg/dL (0-129) HDL Cholesterol 32 mg/dL (40-60) Cholesterol/HDL Ratio 2.7 Glucose (Fingerstick) 98 mg/dL (70-99) 240 mg/dL (70-99) Brief Hospital Course 58 year old presents to the ED complaining of episodes of chest pain 4 days ago. Patient states he started to have intermittent chest pain to left chest starting last . Patient states the pain will wake him up out of his sleep. Complains of pain to left side of his chest. Describes the pain as sharp. Rates the pain as 10 out of 10 when it occurs. Patient states he's had more than 10 episodes each day. Pain is not worse or better with exertion. Patient has a family history of cardiac issues but states he has never been diagnosed with anything himself. his dad of a massive heart attack. Denies shortness of breath, nausea/vomiting, dizziness, weakness, neck pain, fever, jaw pain. admitted to tele bed in stable condition. trops negative. EKG SR without any acute ST ot T wave changes. continue BB, LITO-I , ASA and statin therapy. TTE checked and no wall motion abnormalities. EF normal. cards consulted and will plan for lexiscan and event monitor. will follow up with cardiology in 4 weeks. patient will continue all home meds as previously prescribed. patient discharged home in stable condition. Discharge Information Condition at Discharge: Stable Follow Up: Weeks (4 weeks with cardiology) Disposition/Orders: D/C to Home Scheduled Aspirin (Aspirin) 81 Mg Tab.chew, 1 TAB PO DAILY for oac, #30 Ref 3 (Reported) Entered as Reported by: Geovanni Rodriguez on 11/06/182023 Last Taken: UNKNOWN on Unknown Date & Time Last Action: Continued on 11/06 by Geovanni Rodriguez Atorvastatin Calcium (Atorvastatin Calcium) 40 Mg Tablet, 40 MG PO HS for FOR CHOLESTEROL, #30 Ref 0 (Reported) Entered as Reported by: Geovanni Rodriguez on 11/06/182023 Last Taken: UNKNOWN on Unknown Date & Time Last Action: Continued on 11/06 by Geovanni Rodriguez Buspirone Hcl (Buspirone Hcl) 10 Mg Tablet, 10 MG PO TID for depression, ( Reported) Entered as Reported by: Geovanni Rodriguez on 11/06/182023 Last Taken: UNKNOWN on Unknown Date & Time Last Action: Continued on 11/06 by Geovanni Rodriguez Cholecalciferol (Vitamin D3) (Vitamin D3) 1,000 Unit Capsule, 1,000 UNIT PO dialy for supplement, (Reported) Entered as Reported by: Geovanni Rodriguez on 11/06/182023 Last Taken: UNKNOWN on Unknown Date & Time Last Action: Converted on 11/06 by Geovanni Rodriguez Fluoxetine Hcl (Prozac) 40 Mg Capsule, 60 MG PO DAILY for depression, (Reported) Entered as Reported by: Geovanni Rodriguez on 11/06/182023 Last Taken: UNKNOWN on Unknown Date & Time Last Action: Converted on 11/06 by Geovanni Rodriguez Ipratropium [place] (Ipratropium [place]) 30 Ml Atco, 30 ML NS BID for congestion, (Reported) Entered as Reported by: Geovanni Rodriguez on 11/06/182023 Last Taken: UNKNOWN on Unknown Date & Time Last Action: Converted on 11/06 by Geovanni Rodriguez Metformin Hcl (Metformin Hcl) 500 Mg Tablet, 500 MG PO BIDWMEALS for ANTI- DIABETIC, Ref 0 (Reported) Entered as Reported by: Geovanni Rodriguez on 11/06/182023 Last Taken: UNKNOWN on Unknown Date & Time Last Action: Converted on 11/06 by Geovanni Rodriguez Propranolol Hcl (Propranolol Hcl) 20 Mg Tablet, 20 MG PO TID for htn, (Reported) Entered as Reported by: Geovanni Rodriguez on 11/06/182023 Last Taken: UNKNOWN on Unknown Date & Time Last Action: Converted on 11/06 by Geovanni Rodriguez Quetiapine Fumarate (Seroquel) 50 Mg Tablet, 50 MG PO TID for depression, ( Reported) Entered as Reported by: Geovanni Rodriguez on 11/06/182023 Last Taken: UNKNOWN on Unknown Date & Time Last Action: Converted on 11/06 by Geovanni Rodriguez Scheduled PRN Baclofen (Baclofen) 20 Mg Tablet, 1 TAB PO PRN Q8HRS PRN for MUSCLE SPASMS, #90 Ref 2 (Reported) Entered as Reported by: Geovanni Rodriguez on 11/06/182023 Last Taken: UNKNOWN on Unknown Date & Time Last Action: Converted on 11/06 by Geovanni Rodriguez Hydroxyzine Pamoate (Hydroxyzine Pamoate) 50 Mg Capsule, 50 MG PO PRN BID PRN for ANXIETY / AGITATION, (Reported) Entered as Reported by: Geovanni Rodriguez on 11/06/182023 Last Taken: UNKNOWN on Unknown Date & Time Last Action: Converted on 11/06 by Geovanni Rodriguez Lisinopril (Lisinopril) 10 Mg Tablet, 10 MG PO DAILY PRN for htn, #30 Ref 0 ( Reported) Entered as Reported by: Geovanni Rodriguez on 11/06/182023 Last Taken: UNKNOWN on Unknown Date & Time Last Action: Continued on 11/06 by Geovanni Rodriguez Trazodone Hcl (Trazodone Hcl) 50 Mg Tablet, 50 MG PO PRN QHS PRN for INSOMNIA, ( Reported) Entered as Reported by: Geovanni Rodriguez on 11/06/182023 Last Taken: UNKNOWN on Unknown Date & Time Last Action: Continued on 11/06 by MISTY Gonzales MD Nov 07, 2018 12:18
[2018-11-07 15:08] VITALS: BP 100/60
--- NOTE | 2018-11-07 18:44 | NUR ---
Discharge Note: RUBIO CRANDALL Discharge instructions and discharge home medications reviewed with Patient and a copy given. All questions have been answered and understanding verbalized.
== END 2018-11-07 18:00 | disposition home or self-care (01) | DRG 392 ==
LOC: ER 14:23 → ED HOLD 15:43 → 2 SOUTH 19:16
PROVIDERS: ADMIT Family Medicine; ATTEND Family Medicine
DX: K21.9 Gastro-esophageal reflux disease without esophagitis (principal); I49.3 Ventricular premature depolarization; R07.89 Other chest pain; E11.42 Type 2 diabetes mellitus with diabetic polyneuropathy; I10 Essential (primary) hypertension; E78.5 Hyperlipidemia, unspecified; M19.90 Unspecified osteoarthritis, unspecified site; E88.81 Metabolic syndrome and other insulin resistance; F41.9 Anxiety disorder, unspecified; F41.0 Panic disorder [episodic paroxysmal anxiety]; Z82.49 Family history of ischemic heart disease and other diseases of the circulatory system
CPT/HCPCS: 36415; 71045; 80053; 80061; 81001; 82962; 83690; 83735; 84484; 85007; 85025; 85379; 93005; 93306; J1650; J1815; J3475; 99285-25

== ENCOUNTER → 2020-12-09 | Outpatient (CLI) | payer MEDICARE ==
[~2020-12-09] MED LIST: ASPI-630 PO; ATOR40TA59 PO; BACL20TA PO; BUSP10TA PO; CHOL100014 PO; FLUO40CA9 PO; HYDR50CA2 PO; IPRA30SP NS; LISI10TA16 PO; METF500T16 PO; PROP20TA PO; QUET50TA5 PO; TRAZ-118 PO
--- NOTE | 2020-12-09 14:10 | KCIC ---
EXAM: Thoracic spine, 3 views; lumbar spine, 5 views. HISTORY: Pain. COMPARISON: None. FINDINGS: Thoracic spine: 3 views of the thoracic spine are obtained. There is no acute fracture. There is no l isthesis. There is multilevel endplate remodeling and anterior predominant spurring. There is a mild chronic appearing superior endplate depression at T9. Lumbar spine: 5 views of the lumbar spine are obtained. There is no listhesis. The vertebral bodies a re normal in height. There is multilevel endplate remodeling. There is facet arthropathy predominantl y at the mid lower lumbar levels. There is a small sclerotic lesion within L4. IMPRESSION: 1. 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 2. Mild chronic appearing superior endplate depression at T9. No acute fracture is seen. 3. Small sclerotic lesion within L4. In the absence of known malignancy, this likely a bone island. Electronically signed by: Elmira Segal MD (12/09/2020 2:08 PM) [id number]
== END ==
LOC: KCIC 13:10
PROVIDERS: ATTEND Internal Medicine
DX: M47.815 Spondylosis without myelopathy or radiculopathy, thoracolumbar region (principal)
CPT/HCPCS: 72072; 72110